=== PATIENT | male | born 1940 | race Caucasian/White ===

== ENCOUNTER → 2018-12-16 | Outpatient (REF) | payer MEDICARE ==
[~2018-12-16] MED LIST: AMLOD/BENAZP1 CA5 PO; APRESOLINE50 MG PO; CARVEDILOL25 MG PO; DIOVAN320 MG PO; HYDROCHLORO25 MG/TAB PO; LEVOTHYROXIN25 MC1 PO; METFORMIN500 MG PO; PLAVIX75 MG PO; ZOCOR20 M1 PO
[2018-12-16 08:25] LABS: HEMATOCRIT 42.4 % (39.0-50.0); MEAN CELL VOLUME 89.5 fL CALC (80.0-100.0); MEAN CORPUSCULAR HGB 31.6 pG CALC (26.0-32.0); MEAN CORPUSCULAR HGB CONC 35.4 g/L CALC (32.0-36.0); RED BLOOD COUNT 4.74 mill/uL (4.70-6.10); RED CELL DISTRI WIDTH 12.9 % (11.5-15.5)
[2018-12-16 08:31] LABS: ALBUMIN 3.8 g/dL (3.2-5.0); ALKALINE PHOSPHATASE 71 u/l (38-126); ANION GAP 15 (6-22 (CALC)); BILIRUBIN, TOTAL 0.8 mg/dL (0.0-1.4); BUN 14 mg/dL (8-23); BUN/CREATININE RATIO 13 (12-20 (CALC)); CALCULATED LDLCHOLESTEROL 101 mg/dL (62-129 (CALC)); CARBON DIOXIDE 29 mmol/l (22-30); CHLORIDE 98 mmol/l (95-108); CHOLESTEROL HDL RATIO 3.4 (<4.4 (CALC)); CREATININE 1.1 mg/dL (0.7-1.3); GFR > 60 ML/MIN (>=60 (CALC)); GFR FOR AFR.AMER. > 60 ML/MIN (>=60 (CALC)); HDL CHOLESTEROL 51 mg/dL (>=40); POTASSIUM 3.4 mmol/l (3.5-5.1); SGOT/AST 25 u/l (19-48); SODIUM 139 mmol/l (137-146); TOTAL CHOLESTEROL 171 mg/dl (0-199); TOTAL PROTEIN 6.6 g/dL (6.3-8.2); TOTAL TRIGLYCERIDES 98 mg/dl (30-149); VLDL CHOLESTROL 20 mg/dl (0-38 (CALC))
[2018-12-16 08:59] LABS: TSH, 3RD GENERATION 5.59 uIU/mL (0.47 - 4.68)
== END | disposition home or self-care (01) ==
LOC: LAB 07:06
PROVIDERS: ATTEND Nurse Practitioner
DX: E03.4 Atrophy of thyroid (acquired) (principal); E11.29 Type 2 diabetes mellitus with other diabetic kidney complication; I10 Essential (primary) hypertension; Z12.5 Encounter for screening for malignant neoplasm of prostate

== ENCOUNTER 2020-06-21 06:35 | Day surgery (SDC) | payer MEDICARE ==
[~2020-06-21] VITALS: Ht 170.2 cm; Wt 79.4 kg
[~2020-06-21 06:35] MED LIST changes: +ADLT ASA LOW81 MG PO; +AMITRIPTYLINE H25 MG PO; +CYANOCOBAL1000 MCG/M IM; +ELIQUIS5 MG PO; +GUANFACINE ER2 MG PO; +OMEPRAZOLE DR40 MG PO; +POTASSIUM CHLO10 MEQ PO
[2020-06-21 09:16] VITALS: BP 161/82
== END 2020-06-21 09:13 | disposition home or self-care (01) ==
LOC: ENDO 06:35 → ORM 09:00 → ENDO 09:13
PROVIDERS: ATTEND Surgery
PROC: 0DBL8ZX Excision of Transverse Colon, Via Natural or Artificial Opening Endoscopic, Diagnostic (ICD-10-PCS; principal; 2020-06-21)
DX: Z12.11 Encounter for screening for malignant neoplasm of colon (principal); D12.3 Benign neoplasm of transverse colon; K57.30 Diverticulosis of large intestine without perforation or abscess without bleeding; K64.8 Other hemorrhoids; E11.9 Type 2 diabetes mellitus without complications; I10 Essential (primary) hypertension; Z79.84 Long term (current) use of oral hypoglycemic drugs; Z86.010 Personal history of colon polyps; Z11.59 Encounter for screening for other viral diseases

== ENCOUNTER 2020-09-20 21:39 | Emergency (ER) | payer MEDICARE ==
[~2020-09-20] VITALS: Ht 170.2 cm; Wt 82.0 kg
[2020-09-20 23:14] LABS: ALBUMIN 3.6 g/dL (3.2-5.0); ALKALINE PHOSPHATASE 99 u/l (38-126); ANION GAP 11 (6-22 (CALC)); BILIRUBIN, TOTAL 0.4 mg/dL (0.0-1.4); BUN 11 mg/dL (8-23); BUN/CREATININE RATIO 11 (12-20 (CALC)); CARBON DIOXIDE 26 mmol/l (22-30); CHLORIDE 104 mmol/l (95-108); GFR > 60 ML/MIN (>=60 (CALC)); GFR FOR AFR.AMER. > 60 ML/MIN (>=60 (CALC)); POTASSIUM 3.5 mmol/l (3.5-5.1); SGOT/AST 27 u/l (19-48); SODIUM 138 mmol/l (137-146); TOTAL PROTEIN 6.4 g/dL (6.3-8.2)
[2020-09-20 23:47] VITALS: BP 149/73
== END 2020-09-21 00:15 | disposition home or self-care (01) ==
LOC: ED 21:39
PROVIDERS: Family Medicine
DX: I10 Essential (primary) hypertension (principal); E11.9 Type 2 diabetes mellitus without complications; Z79.84 Long term (current) use of oral hypoglycemic drugs

== ENCOUNTER 2024-09-21 16:55 | Observation (INO) | payer MEDICARE ==
[~2024-09-21] VITALS: Ht 170.2 cm; Wt 83.0 kg
[2024-09-21] VITALS (22 sets, daily range): BP systolic 109–212; BP diastolic 46–90
[~2024-09-21 16:55] MED LIST changes: +CIPROFLOXACN500 MG PO; +FLONASE AL50 MCG/ACT; +GUANFACINE2 MG PO; +LEVOTHYROXIN88 MC1 PO; +METRONIDAZOLE500 MG PO; +SLOW-MAG PO; +XARELTO20 MG PO
[2024-09-21] MEDS ORDERED: NITROGLYCERIN 0.4 MG/TAB SL ONE (17:35)
[2024-09-21] MEDS ORDERED: ASPIRIN 81 MG/TAB PO ONE (17:35)
[2024-09-21 17:57] LABS: BASO% 0.5 % (0-3); EOS% 3.4 % (0-8); HEMATOCRIT 42.3 % (39.0-50.0); HEMOGLOBIN 14.1 g/dl (14.0-18.0); IMMATURE GRANULOCYTES 0.2 % (0.0-5.0); LYMPH% 21.1 % (15-41); MEAN CELL VOLUME 88.1 fL CALC (80.0-100.0); MEAN CORPUSCULAR HGB 29.4 pG CALC (26.0-32.0); MEAN CORPUSCULAR HGB CONC 33.3 g/dL CAL (32.0-36.0); MONO% 9.4 % (2-13); NEUT# 6.03 thou/uL (1.82-7.42); NEUT% 65.4 % (42-76); RED BLOOD COUNT 4.8 mill/uL (4.70-6.10); RED CELL DISTRI WIDTH 14.4 % (11.5-15.5)
[2024-09-21 18:09] LABS: ALBUMIN 4.3 g/dL (3.2-5.0); ALKALINE PHOSPHATASE 100 u/l (38-126); ANION GAP 16 (6-22 (CALC)); BILIRUBIN, TOTAL 0.8 mg/dL (0.2-1.3); BUN 12 mg/dL (8-23); BUN/CREATININE RATIO 7 (12-20 (CALC)); CARBON DIOXIDE 22 mmol/l (22-30); CHLORIDE 105 mmol/l (95-108); CREATININE 1.8 mg/dL (0.7-1.3); ESTIMATED GFR 37 ML/MIN (>=90 (CALC)); SGOT/AST 33 u/l (19-48); SODIUM 138 mmol/l (137-146); TOTAL PROTEIN 7.6 g/dL (6.3-8.2)
[2024-09-21] MEDS ORDERED: NITROGLYCERIN 2% OINT UD 1 GM/PAK TD ONE (19:25)
[2024-09-21] MEDS ORDERED: ACETAMINOPHEN 325 MG/TAB PO PRN (20:15)
[2024-09-21] MEDS ORDERED: MAGNESIUM HYDROXIDE 30 ML UDC PO PRN (20:15)
[2024-09-21] MEDS ORDERED: Zaleplon 5 MG/CAP PO PRN (20:15)
[2024-09-21] MEDS ORDERED: CARVEDILOL 25 MG/TAB PO SCH (21:00)
[2024-09-21] MEDS ORDERED: RIVAROXABAN 20 MG TAB PO SCH (21:08)
[2024-09-22] VITALS (12 sets, daily range): BP systolic 101–201; BP diastolic 59–83
[2024-09-22 06:04] LABS: MAGNESIUM 2.4 mg/dL (1.6-2.3)
[2024-09-22] MEDS ORDERED: LEVOTHYROXINE SODIUM 88 MCG TAB PO SCH ×2 (07:30→09:00)
[2024-09-22] MEDS ORDERED: ASPIRIN EC 81 MG/TAB PO SCH (09:00)
[2024-09-22] MEDS ORDERED: amLODIPine BESYLATE 5 MG/TAB PO SCH (09:00)
[2024-09-22] MEDS ORDERED: AMITRIPTYLINE HCL 25 MG TAB PO SCH ×2 (09:00→21:00)
[2024-09-22] MEDS ORDERED: PANTOPRAZOLE SODIUM Sesquihydr 40 MG/TAB PO SCH (09:00)
[2024-09-22] MEDS ORDERED: CLONIDINE0.1 MG PO (09:17)
[2024-09-22] MEDS ORDERED: cloNIDine HCL 0.1 MG/TAB PO PRN (13:40)
== END 2024-09-22 14:29 | disposition home or self-care (01) ==
LOC: ED 16:55 → ED-I 17:36 → ED 17:36 → ED-I 18:55 → ED 19:23 → MS2 19:24
PROVIDERS: Nurse Practitioner; ADMIT Internal Medicine; ATTEND Internal Medicine
DX: I12.9 Hypertensive chronic kidney disease with stage 1 through stage 4 chronic kidney disease, or unspecified chronic kidney disease (principal); N18.9 Chronic kidney disease, unspecified; I48.91 Unspecified atrial fibrillation; I25.10 Atherosclerotic heart disease of native coronary artery without angina pectoris; E03.9 Hypothyroidism, unspecified; I44.0 Atrioventricular block, first degree; I45.10 Unspecified right bundle-branch block; Z85.46 Personal history of malignant neoplasm of prostate; Z95.0 Presence of cardiac pacemaker; Z95.5 Presence of coronary angioplasty implant and graft; R07.9 Chest pain, unspecified